=== PATIENT | female | born 1960 | race African-American/Black ===

== ENCOUNTER 2016-08-13 06:40 | Inpatient (IN) | payer OTHER ==
[~2016-08-13] VITALS: Ht 177.8 cm; Wt 91.2 kg
[2016-08-13] MEDS ORDERED: OPTIRAY 350 100 ML VIAL HMH IV ONE (06:41)
[2016-08-13] MEDS ORDERED: SODIUM CHLORIDE 0.9% 1,000 ML ONE (07:29)
[2016-08-13] MEDS ORDERED: ONDANSETRON 4 MG VIAL ONE ×2 (07:29→08:28)
[2016-08-13] MEDS ORDERED: MORPHINE 4 MG/ML SYR ONE ×2 (08:28→11:52)
[2016-08-13] MEDS ORDERED: ED METRONIDAZOLE IV 100 ML IV ONE (09:15)
[2016-08-13] MEDS ORDERED: LEVOFLOXACIN 500 MG TAB ONE (09:22)
[2016-08-13] MEDS ORDERED: ONDANSETRON 4 MG VIAL IV PUSH PRN (12:05)
[2016-08-13] MEDS: MORPHINE 2 MG/ML SYR IV PRN ×3 (14:34→22:36)
[2016-08-13 14:48] VITALS: BP_SYST 122; BP_SYST 130; RESP 18; TEMP 97.7
[2016-08-13 14:51] VITALS: Ht 177.8 cm; Wt 91.2 kg
[2016-08-13] MEDS: METRONIDAZOLE 500MG/100ML 100 ML IV SCH (17:31)
[2016-08-13] MEDS ORDERED: PHARMACY TO DOSE XX SCH (19:05)
[2016-08-13] MEDS: hePARIN 20,000 UNITS in DEXTROSE 5% 500 ML IV SCH (22:09)
[2016-08-13 23:23] VITALS: BP_SYST 122; RESP 16; TEMP 98.6
[2016-08-13] MEDS: ISOSORBIDE MONO 30 MG TAB PO SCH (23:58)
[2016-08-13] MEDS: Atorvastatin 40 MG TAB PO SCH (23:59)
[2016-08-13] MEDS: METOPROLOL XL 25 MG TAB PO SCH (23:59)
[2016-08-14] VITALS (18 sets, daily range): BP systolic 93–140; RESP 16–18; TEMP 96.8–98.3
[2016-08-14] MEDS: METRONIDAZOLE 500MG/100ML 100 ML IV SCH ×3 (00:48→16:41)
[2016-08-14] MEDS ORDERED: ASPIRIN 81 MG CHEW TAB PO STA (01:37)
[2016-08-14] MEDS ORDERED: DOCUSATE SOD 100 MG CAP PO PRN (01:40)
[2016-08-14] MEDS ORDERED: ACETAMINOPHEN 325 MG TAB PO PRN (01:40)
[2016-08-14] MEDS ORDERED: SALINE FLUSH 10 ML FLUSH PRN (01:40)
[2016-08-14] MEDS ORDERED: ALU/MAG/SIM 30 ML UDC PO PRN (01:40)
[2016-08-14] MEDS ORDERED: TEMAZEPAM 7.5 MG CAP PO PRN (01:40)
[2016-08-14] MEDS: NITROGLYCERIN SL 0.4 MG TAB SL PRN ×5 (01:50→08:27)
[2016-08-14] MEDS: ISOSORBIDE MONO 30 MG TAB PO SCH (08:01)
[2016-08-14] MEDS: METOPROLOL XL 25 MG TAB PO SCH ×2 (08:01→20:51)
[2016-08-14] MEDS: SALINE FLUSH 10 ML FLUSH SCH ×2 (08:02→20:51)
[2016-08-14] MEDS: PRASUGREL 10 MG TAB PO SCH (08:04)
[2016-08-14] MEDS: MORPHINE 2 MG/ML SYR IV PRN ×3 (08:32→23:20)
[2016-08-14] MEDS ORDERED: ASPIRIN EC 325 MG TAB PO SCH (09:00)
[2016-08-14] MEDS ORDERED: LEVOFLOXACIN 500 MG/100 ML 100 ML IV SCH (09:00)
[2016-08-14] MEDS ORDERED: PRASUGREL 5 MG TAB PO SCH (09:00)
[2016-08-14] MEDS: MAGNESIUM SULF 1 GM/100 ML 100 ML IV SCH ×2 (10:16→12:18)
[2016-08-14] MEDS ORDERED: MISSING DOSE XX ONE (14:55)
[2016-08-14] MEDS: SODIUM CHLORIDE 0.9% FLUSH BAG 500 ML IV SCH (16:41)
[2016-08-14] MEDS: Atorvastatin 40 MG TAB PO SCH (20:51)
[2016-08-15] VITALS (13 sets, daily range): BP systolic 92–130; RESP 14–18; TEMP 96.5–98
[2016-08-15] MEDS: METRONIDAZOLE 500MG/100ML 100 ML IV SCH ×4 (00:39→23:44)
[2016-08-15] MEDS: MORPHINE 2 MG/ML SYR IV PRN ×2 (02:05→08:29)
[2016-08-15] MEDS ORDERED: MISSING DOSE XX ONE ×2 (03:55→22:40)
[2016-08-15] MEDS: hePARIN 20,000 UNITS in DEXTROSE 5% 500 ML IV SCH ×2 (06:10→23:43)
[2016-08-15] MEDS: SODIUM CHLORIDE 0.9% FLUSH BAG 500 ML IV SCH (08:27)
[2016-08-15] MEDS: SALINE FLUSH 10 ML FLUSH SCH ×2 (08:27→21:03)
[2016-08-15] MEDS: METOPROLOL XL 25 MG TAB PO SCH ×2 (08:27→21:00)
[2016-08-15] MEDS: ASPIRIN 81 MG CHEW TAB PO SCH (08:28)
[2016-08-15] MEDS: PRASUGREL 10 MG TAB PO SCH (08:28)
[2016-08-15] MEDS: KETOROLAC 30 MG/ML VIAL IV SCH ×2 (12:58→21:03)
[2016-08-15] MEDS: Atorvastatin 40 MG TAB PO SCH (21:01)
[2016-08-15] MEDS: TEMAZEPAM 15 MG CAP PO PRN (21:01)
[2016-08-16] VITALS (34 sets, daily range): BP systolic 101–167; RESP 18–20; TEMP 96.6–97.9
[2016-08-16] MEDS: SODIUM CHLORIDE 0.9% FLUSH BAG 500 ML IV SCH (05:59)
[2016-08-16] MEDS: METRONIDAZOLE 500MG/100ML 100 ML IV SCH ×3 (08:55→23:18)
[2016-08-16] MEDS: KETOROLAC 30 MG/ML VIAL IV SCH ×2 (08:56→19:53)
[2016-08-16] MEDS: METOPROLOL XL 25 MG TAB PO SCH ×2 (08:56→19:54)
[2016-08-16] MEDS: PRASUGREL 10 MG TAB PO SCH (08:56)
[2016-08-16] MEDS: ASPIRIN 81 MG CHEW TAB PO SCH (08:56)
[2016-08-16] MEDS: SALINE FLUSH 10 ML FLUSH SCH ×2 (08:57→20:51)
[2016-08-16] MEDS: MORPHINE 2 MG/ML SYR IV PRN ×2 (13:06→19:54)
[2016-08-16] MEDS ORDERED: MISSING DOSE XX ONE (16:20)
[2016-08-16] MEDS: Atorvastatin 40 MG TAB PO SCH (19:54)
[2016-08-16] MEDS: CHOLESTYRAMINE LIGHT 4 GM PKT PO SCH ×2 (20:45→22:00)
[2016-08-16] MEDS: LORAZEPAM 0.5 MG TAB PO PRN (20:45)
[2016-08-16] MEDS: hePARIN 20,000 UNITS in DEXTROSE 5% 500 ML IV SCH (20:50)
[2016-08-16] MEDS: NITROGLYCERIN 50 MG/250 ML 250 ML IV SCH (20:56)
[2016-08-17] VITALS (15 sets, daily range): BP systolic 112–151; RESP 18; TEMP 97–97.7
[2016-08-17] MEDS: NITROGLYCERIN 50 MG/250 ML 250 ML IV SCH (00:21)
[2016-08-17] MEDS: TRAMADOL 50 MG TAB PO PRN ×2 (05:57→14:08)
[2016-08-17] MEDS: SODIUM CHLORIDE 0.9% FLUSH BAG 500 ML IV SCH ×2 (09:10→23:07)
[2016-08-17] MEDS: SALINE FLUSH 10 ML FLUSH SCH ×2 (09:10→20:51)
[2016-08-17] MEDS: METRONIDAZOLE 500MG/100ML 100 ML IV SCH (09:10)
[2016-08-17] MEDS: CHOLESTYRAMINE LIGHT 4 GM PKT PO SCH ×2 (09:11→20:50)
[2016-08-17] MEDS: ASPIRIN 81 MG CHEW TAB PO SCH (09:11)
[2016-08-17] MEDS: METOPROLOL XL 25 MG TAB PO SCH ×3 (09:11→20:51)
[2016-08-17] MEDS: SACCHA BOULARDII 250MG CAP PO SCH ×2 (09:11→20:50)
[2016-08-17] MEDS: KETOROLAC 30 MG/ML VIAL IV SCH (09:11)
[2016-08-17] MEDS: PRASUGREL 10 MG TAB PO SCH (09:11)
[2016-08-17] MEDS: VANCOMYCIN SUSP 250 MG/5 ML UDC PO SCH ×4 (09:13→20:50)
[2016-08-17] MEDS ORDERED: KETOROLAC 30 MG/ML VIAL IV PRN (10:05)
[2016-08-17] MEDS ORDERED: MISSING DOSE XX ONE (14:20)
[2016-08-17] MEDS: METRONIDAZOLE 500 MG TAB PO SCH ×2 (16:36→20:50)
[2016-08-17] MEDS: LORAZEPAM 0.5 MG TAB PO PRN (20:50)
[2016-08-17] MEDS: Atorvastatin 40 MG TAB PO SCH (20:50)
[2016-08-18] MEDS: MORPHINE 2 MG/ML SYR IV PRN (00:12)
[2016-08-18 03:00] VITALS: BP_SYST 136; RESP 18; TEMP 97.3
[2016-08-18] MEDS ORDERED: MISSING DOSE XX ONE ×3 (05:40→23:00)
[2016-08-18] MEDS: hePARIN 20,000 UNITS in DEXTROSE 5% 500 ML IV SCH (06:17)
[2016-08-18 07:31] VITALS: BP_SYST 132; RESP 16; TEMP 97.6
[2016-08-18] MEDS: SALINE FLUSH 10 ML FLUSH SCH ×2 (08:00→20:00)
[2016-08-18] MEDS: METOPROLOL XL 25 MG TAB PO SCH ×4 (08:12→21:00)
[2016-08-18] MEDS: METRONIDAZOLE 500 MG TAB PO SCH ×3 (10:11→20:39)
[2016-08-18] MEDS: SACCHA BOULARDII 250MG CAP PO SCH ×2 (10:11→20:39)
[2016-08-18] MEDS: VANCOMYCIN SUSP 250 MG/5 ML UDC PO SCH ×4 (10:11→20:39)
[2016-08-18] MEDS: CHOLESTYRAMINE LIGHT 4 GM PKT PO SCH ×2 (10:11→21:43)
[2016-08-18] MEDS: PRASUGREL 10 MG TAB PO SCH (10:11)
[2016-08-18] MEDS: ASPIRIN 81 MG CHEW TAB PO SCH (10:12)
[2016-08-18 11:19] VITALS: BP_SYST 128; RESP 16; TEMP 97.7
[2016-08-18 15:35] VITALS: BP_SYST 118; RESP 16
[2016-08-18 19:00] VITALS: BP_SYST 140; RESP 16; TEMP 97.9
[2016-08-18] MEDS: Atorvastatin 40 MG TAB PO SCH (20:39)
[2016-08-18] MEDS: TEMAZEPAM 15 MG CAP PO PRN (20:47)
[2016-08-18 23:22] VITALS: BP_SYST 150; RESP 18; TEMP 97
[2016-08-19] MEDS: hePARIN 20,000 UNITS in DEXTROSE 5% 500 ML IV SCH (00:22)
[2016-08-19 04:46] VITALS: BP_SYST 108; RESP 18; TEMP 97.7
[2016-08-19] MEDS: SODIUM CHLORIDE 0.9% FLUSH BAG 500 ML IV SCH (04:57)
[2016-08-19 07:58] VITALS: BP_SYST 126; RESP 15; RESP 16; TEMP 97.8
[2016-08-19] MEDS: METRONIDAZOLE 500 MG TAB PO SCH ×3 (08:10→20:53)
[2016-08-19] MEDS: SALINE FLUSH 10 ML FLUSH SCH ×2 (08:10→20:53)
[2016-08-19] MEDS: METOPROLOL XL 25 MG TAB PO SCH ×4 (08:10→20:53)
[2016-08-19] MEDS: VANCOMYCIN SUSP 250 MG/5 ML UDC PO SCH ×4 (08:10→23:27)
[2016-08-19] MEDS: ASPIRIN 81 MG CHEW TAB PO SCH (08:10)
[2016-08-19] MEDS: SACCHA BOULARDII 250MG CAP PO SCH ×2 (08:10→20:53)
[2016-08-19] MEDS: PRASUGREL 10 MG TAB PO SCH (08:11)
[2016-08-19] MEDS: CHOLESTYRAMINE LIGHT 4 GM PKT PO SCH ×2 (10:00→23:27)
[2016-08-19 11:58] VITALS: BP_SYST 134; RESP 18; TEMP 97.9
[2016-08-19 17:28] VITALS: BP_SYST 136; RESP 18; TEMP 97.4
[2016-08-19 20:21] VITALS: BP_SYST 92; RESP 18; TEMP 98.1
[2016-08-19] MEDS: Atorvastatin 40 MG TAB PO SCH (20:54)
[2016-08-19] MEDS ORDERED: MISSING DOSE XX ONE (21:00)
[2016-08-19 23:46] VITALS: BP_SYST 120; RESP 18; TEMP 97.5
[2016-08-20 04:38] VITALS: BP_SYST 120; RESP 18; TEMP 97.4
[2016-08-20] MEDS: SODIUM CHLORIDE 0.9% FLUSH BAG 500 ML IV SCH (06:00)
[2016-08-20 07:53] VITALS: BP_SYST 122; RESP 16; TEMP 96.9
[2016-08-20] MEDS: PRASUGREL 10 MG TAB PO SCH (08:01)
[2016-08-20] MEDS: METRONIDAZOLE 500 MG TAB PO SCH ×2 (08:01→16:56)
[2016-08-20] MEDS: METOPROLOL XL 25 MG TAB PO SCH (08:01)
[2016-08-20] MEDS: VANCOMYCIN SUSP 250 MG/5 ML UDC PO SCH ×3 (08:01→17:00)
[2016-08-20] MEDS: ASPIRIN 81 MG CHEW TAB PO SCH (08:02)
[2016-08-20] MEDS: SALINE FLUSH 10 ML FLUSH SCH (08:02)
[2016-08-20] MEDS: SACCHA BOULARDII 250MG CAP PO SCH (08:02)
[2016-08-20] MEDS: CHOLESTYRAMINE LIGHT 4 GM PKT PO SCH (10:51)
[2016-08-20 11:21] VITALS: BP_SYST 120; RESP 18; TEMP 97.8
[2016-08-20 15:55] VITALS: BP_SYST 120; RESP 18; TEMP 97.8
== END 2016-08-20 17:40 | disposition home or self-care (01) | DRG 372 ==
LOC: CANRESERV → ENRESERVDT → ENRESERVTM → ER 06:40 → EMR 12:03 → ENPENDDIS 12:03 → 4THE 13:59
PROVIDERS: ADMIT Internal Medicine; ATTEND Internal Medicine
CPT/HCPCS: 36415; 71010; 74177; 80048; 80053; 80061; 81001; 82550; 82553; 82947; 83630; 83690; 83735; 84484; 85025; 85610; 85730; 87040; 87045; 87046; 87088; 87177; 87493; 93005; 93306; 94799; 96361; 96365; 96375; 96376